=== PATIENT | female | born 1950 | race Caucasian/White ===

== ENCOUNTER → 2017-04-06 07:34 | Outpatient (CLI) | payer MEDICARE ==
[~2017-04-06 07:34] MED LIST: BAYER CHEWABLE81 MG PO; COZAAR100 MG PO; COZAAR25 MG PO; DULERA 100 MCG8.8 GM INH; HYZAAR 100-12.51 TAB PO; LAMISIL250 MG PO; LIPITOR20 MG PO; PROZAC10 MG; PROZAC20 MG PO; TENORMIN25 MG; TENORMIN50 MG PO; ULTRAM50 MG PO; ZEGERID 20 MG C1 CAP PO; ZEGERID OTC 201 EACH PO; ZOCOR20 MG PO
[2017-04-07 09:17] LABS: IMMUNOGLOBULIN E 15 IU/mL (0-100)
== END | disposition home or self-care (01) ==
LOC: D.RT 07:34
PROVIDERS: Internal Medicine Pulmonary Disease
DX: J44.9 Chronic obstructive pulmonary disease, unspecified (principal)

== ENCOUNTER 2017-04-11 22:18 | Inpatient (IN) | payer MEDICARE ==
[~2017-04-11] VITALS: Ht 157.5 cm; Wt 83.2 kg
[2017-04-11 22:59] LABS: BASOPHILS 0.3 % (0-2); EOSINOPHILS 3.8 % (0-7); HEMATOCRIT 38.6 % (36.0-48.0); HEMOGLOBIN 12.1 g/dL (12-16); IMMATURE GRANULOCYTES 1.7 % (0-5); MCHC 31.3 g/dL (31.0-37.0); MCV 92.6 fL (80.0-100.0); MEAN PLATELET VOLUME 10.4 fL (7.4-10.4); MONOCYTES 10.7 % (2-11); NEUTROPHILS 79.5 % (40-80); PLATELET COUNT 212 10x3/uL (130-400); RBC 4.17 10x6/uL (4.00-5.40); RDW 13.3 % (11.5-14.5); WBC 15.6 10x3/uL (4.8-10.8)
[2017-04-11 23:11] LABS: ALKALINE PHOSPHATASE 162 U/L (46-116); ALT (SGPT) 53 U/L (10-68); BILIRUBIN - TOTAL 0.26 mg/dL (0.2-1.3); CALC OSMOLALITY 294 mosm/kg (275-300); CALCIUM 7.1 mg/dL (8.5-10.1); CARBON DIOXIDE 24.5 mmol/L (21.0-32.0); CHLORIDE - SERUM 111 mmol/L (98-107); CREATININE - SERUM 1.5 mg/dL (0.6-1.3); GLUCOSE 77 mg/dL (74-106); POTASSIUM - SERUM 4.5 mmol/L (3.5-5.1); PROTEIN - SERUM 6.3 g/dL (6.4-8.2); SODIUM 145 mmol/L (136-145); UREA NITROGEN 31 mg/dL (7-18); eGFR NON AFRICAN AMERICAN 37 mL/min (90-120)
[2017-04-11 23:32] LABS: CREATINE KINASE 383 UL (21-215); PRO BNP 169 pg/mL (0-125); TROPONIN-I 0.024 ng/mL (0.000-0.060)
[2017-04-11 23:33] LABS: CKMB 3.6 U/L (0.0-3.6)
[2017-04-12] VITALS (24 sets, daily range): BP systolic 101–181; BP diastolic 60–101; Ht 157.5 cm; Wt 83.2 kg
--- NOTE | 2017-04-12 01:58 | NUR ---
RECIEVED PT FROM ER VIA MEDICAL STAFF. ADMISSION ASSESSMENT COMPLETE PER FLOWSHEET. DIMINISHED BREATH SOUNDS BILAT WITH EXPIRATORY WHEEZES HEARD. 7.0 ETT, 24 CM, LEFT LIP LINE. NGT RESTING IN L NARE DRAINING GREEN, STOMACH CONTENTS, INT SUCTION. S1S2 AUDIBLE, HR 80 NORMAL SINUS RHYTHM VIA TELEMETRY. BP 117/98, NIBP. BS ACTIVE X4. WATERY BROWN BOWEL MOVEMENT. PARTIAL LINEN CHANGE COMPLETE. FOELY CATH INTACT DRAINING YELLOW URINE. BILAT BRUISING NOTED ON L & R ARMS. SMALL INCISION ON R CHEST DUE TO CENTRAL LINE ATTEMPT, BRUISING NOTED. ABD IS DISTENDED AND SOFT. SCDS APPLIED TO LOWER LEGS. RADIAL AND PEDAL PULSES PALP. NO SIGNS OF DISTRESS AT THIS TIME. WILL CONT TO MONITOR.
--- NOTE | 2017-04-12 02:30 | NUR ---
UPON SUCTIONING PT, A CHUNK OF FOOD BECAME LODGED IN THE ETT. ELDER ABDI RN CALLED DR. TERRELL. NEW ORDERS RECIEVED. DR. MOULTON INSERTED 8.0 MM ETT. STAT XRAY VIA DR. MOULTON VERBAL ORDER. WILL CONT WITH POC.
--- NOTE | 2017-04-12 03:27 | NUR ---
FAMILY AT BEDSIDE. HX COMPLETE. PT STATEST THAT HE HAS MED LIST IN HIS CAR. WILL GET IT TO [facility].
[2017-04-12] MEDS ORDERED: SINGULAIR10 MG PO (04:33)
[2017-04-12] MEDS ORDERED: MOBIC7.5 MG PO (04:34)
[2017-04-12] MEDS ORDERED: INDERAL 40 MG T40 MG PO (04:36)
[2017-04-12] MEDS ORDERED: SYMBICORT 16010.2 GM INH (04:39)
--- NOTE | 2017-04-12 05:16 | NUR ---
PARTIAL LINEN CHANGE. WATERY, BROWN DIARRHEA. BP TRENDING UP AT THIS TIME. REPOSITIONED CUFF AND RECHECKED. ORAL CARE PROVIDED. REPOSITIONED FOR COMFORT. WILL CONT TO MONITOR.
[2017-04-12 06:56] LABS: BASOPHILS 0.1 % (0-2); EOSINOPHILS 0.1 % (0-7); HEMATOCRIT 38.1 % (36.0-48.0); HEMOGLOBIN 11.8 g/dL (12-16); IMMATURE GRANULOCYTES 0.5 % (0-5); LYMPHOCYTES 2.4 % (15-50); MCH 28.6 pg (26.0-34.0); MCV 92.3 fL (80.0-100.0); MEAN PLATELET VOLUME 11.3 fL (7.4-10.4); NEUTROPHILS 90.9 % (40-80); PLATELET COUNT 230 10x3/uL (130-400); RBC 4.13 10x6/uL (4.00-5.40); RDW 13.5 % (11.5-14.5); WBC 17.4 10x3/uL (4.8-10.8)
[2017-04-12 07:06] LABS: ALBUMIN 2.9 g/dL (3.4-5.0); ANION GAP 17.5 mmol/L (8-16); BILIRUBIN - TOTAL 0.41 mg/dL (0.2-1.3); CARBON DIOXIDE 19.4 mmol/L (21.0-32.0); CREATININE - SERUM 1.3 mg/dL (0.6-1.3); POTASSIUM - SERUM 4.9 mmol/L (3.5-5.1); PROTEIN - SERUM 6.1 g/dL (6.4-8.2)
[2017-04-12 07:07] LABS: CALCIUM 6.8 mg/dL (8.5-10.1)
--- NOTE | 2017-04-12 07:55 | NUR ---
PATIENT HAS AN INVOLUNTARY MOVEMENT OF EYELIDS WITH EACH BREATH. NO OTHER INVOLUMTARY MOVEMENTS NOTED AT THIS TIME. PATIENT IS SEDATED. PERRL 4/4 BRISK.
--- NOTE | 2017-04-12 10:52 | NUR ---
DR. ACEVEDO HERE AND SPOKE WITH PATIENT FAMILY ABOUT BRONCOSCOPY, CONSENT SIGNED FOR PROCEDURE.
--- NOTE | 2017-04-12 11:19 | NUR ---
RESPIRATORY THERAPY HERE IN ROOM SETTING UP FOR BRONC AT THIS TIME.
--- NOTE | 2017-04-12 12:33 | NUR ---
FAMILY AT BEDSIDE. NO CHANGES IN PATIENT CONDITION. V/S WITHIN NORMAL LIMITS. BED IN LOW POSITION.
--- NOTE | 2017-04-12 13:09 | NUR ---
BRONCHOSCOPY COMPLETED.
--- NOTE | 2017-04-12 19:15 | NUR ---
SHIFT ASSESSMENT COMPLETE. PT IS UNABLE TO RESPOND TO ANY COMMANDS. NO MOVEMENT NOTED. DECREASED DIPRIVAN FROM 40 MCG/KG/MIN TO 35 MCG/KG/MIN. PERRLA, 4 MM, BRISK REACTION TO LIGHT. NGT RESTING IN L NARE DRAINING GREEN BILE LIKE FLUID. ETT SIZE 8, 22 CM LEFT LIP LINE. O2 SAT 98%, VENT SETTINGS: A/C, TIDAL VOLUME 500, PEEP 5.0, FIO2 40 %. DIMINISHED LUNG SOUNDS WITH EXPIRATORY WHEEZES HEARD BILAT. S1S2 AUDIBLE, HR 99, NORMAL SINUS RHYTHM. ABD IS DISTENDED AND FLAT. HUITRON CATH DRAINING ANUPAM URINE. L WRIST PIV INFUSING DIPRIVAN, R FOREARM PIV INFUSING D5NS @ 125 ML/HR. SCDS REMOVED AND SKIN ASSESSED, WNL. BRUISING NOTED ON R CHEST AND LEFT/RIGHT ARMS. FSBS 135, NO INSULIN ADMINISTERED. SMALL WATERY BROWN BM NOTED. PARTIAL BED BATH AND LINEN CHANGE. ORAL CARE PROVIDED. REPOSITONED FOR COMFORT. WILL CONT WITH POC.
--- NOTE | 2017-04-12 21:15 | NUR ---
PT'S FAMILY AT BEDSIDE. GAVE HER SPOUSE HER BAG OF MEDICATIONS TO TAKE HOME WITH HIM. UPDATED FAMILY ON PT CONDITION. NO SIGNS OF DISTRESS NOTED. REPOSITIONED FOR COMFORT. ORAL CARE PROVIDED. WILL CONT WITH POC.
--- NOTE | 2017-04-12 22:04 | NUR ---
STARTED PULMOCARE TF PER ORDER. RATE OF 10 ML/HR AT THIS TIME. WILL CLARIFY ORDER TOMORROW WITH ONCOMING NURSE.
--- NOTE | 2017-04-12 22:48 | NUR ---
DECREASED DIPRIVAN. 30 MCG/KG/MIN INFUSING AT THIS TIME. WILL CONT TO MONITOR.
--- NOTE | 2017-04-12 23:30 | NUR ---
REASSESSMENT COMPLETE. DECREASED DIPRIVAN TO 25 MCG/KG/MIN. SHE IS SHOWING SOME SIGNS OF FACIAL GRIMICING WHEN I WAS PERFORMING ORAL CARE. PERRLA, 4 MM, BRISK REACTION TO LIGHT. S1S2 AUDIBLE, HR 108 SINUS TACH. DIMINISHED BREATH SOUNDS WITH EXPIRATORY WHEEZES HEARD BILAT. O2 SAT 98%. BP 154/82, SLIGHT INCREASE IN TEMP TO 99.3 AXILLARY. ABD DISTENDED AND SOFT. BS ACTIVE X4. RESTRAINTS REMOVED AND SKIN ASSESSED, WNL. HUITRON CATH INTACT DRAINING ANUPAM URINE. REPOSITONED FOR COMFORT. WILL CONT WITH POC.
[2017-04-13] VITALS (25 sets, daily range): BP systolic 138–175; BP diastolic 77–114
--- NOTE | 2017-04-13 01:30 | NUR ---
REPOSITIONED FOR COMFORT. DECREASED DIPRIVAN TO 20 MCG/KG/MIN. ORAL CARE PROVIDED. PT STARTED TO FLEX HER LEGS WHEN WE WERE CHANGING HER PAD UNDERNEATH HER. SMALL LIGHT BROWN BM NOTED. WILL CONT WITH POC.
--- NOTE | 2017-04-13 03:00 | NUR ---
REASSESSMENT COMPLETE, NO CHANGES NOTED, PT REPOSITIONED FOR COMFORT, ORAL CARE PROVIDED, WILL CON'T TO MONITOR
[2017-04-13 04:37] LABS: BASOPHILS 0.1 % (0-2); EOSINOPHILS 0.4 % (0-7); HEMATOCRIT 36.4 % (36.0-48.0); HEMOGLOBIN 11.8 g/dL (12-16); IMMATURE GRANULOCYTES 0.2 % (0-5); LYMPHOCYTES 7.1 % (15-50); MCH 29.3 pg (26.0-34.0); MCHC 32.4 g/dL (31.0-37.0); MCV 90.3 fL (80.0-100.0); MEAN PLATELET VOLUME 11.2 fL (7.4-10.4); MONOCYTES 12.3 % (2-11); NEUTROPHILS 79.9 % (40-80); PLATELET COUNT 247 10x3/uL (130-400); RBC 4.03 10x6/uL (4.00-5.40); RDW 13.5 % (11.5-14.5); WBC 16.6 10x3/uL (4.8-10.8)
[2017-04-13 05:02] LABS: ALBUMIN 2.6 g/dL (3.4-5.0); ANION GAP 16.5 mmol/L (8-16); BILIRUBIN - TOTAL 0.4 mg/dL (0.2-1.3); CALCIUM 7.5 mg/dL (8.5-10.1); CARBON DIOXIDE 20.6 mmol/L (21.0-32.0); CREATININE - SERUM 1.4 mg/dL (0.6-1.3); PROTEIN - SERUM 5.9 g/dL (6.4-8.2)
[2017-04-13 05:03] LABS: POTASSIUM - SERUM 3.1 mmol/L (3.5-5.1)
--- NOTE | 2017-04-13 06:09 | NUR ---
FAMILY AT BEDSIDE, UPDATE GIVEN
--- NOTE | 2017-04-13 07:00 | NUR ---
PT SEDATED ON VENT AND APPEARS TO BE ADEQUATELY SEDATED AT THIS TIME. RESPONDS TO DEEP STIMULI BUT NOT FOLLOWING COMMANDS. PT LOCALIZES PAIN AND GAGS WITH SUCITON, ORAL CARE PERFORMED AND ETT SUCTION. COMPLETE SHIFT ASSESSMENT DOCUMENTED PER FLOWSHEET. NO EVIDENCE OF PAIN AT THIS TIME. WILL MONITOR CLOSELY FOR CHANGES
--- NOTE | 2017-04-13 09:00 | NUR ---
FAMILY AT BEDSIDE. PT REPOSITONED IN BED FOR COMFORT. WILL CONTINUE TO MONITOR F0R ACUTE CHANGES
--- NOTE | 2017-04-13 10:30 | NUR ---
SPOKE WITH DIETARY AND INCREASED TUBE FEEDINGS TO 20CC/HR PER ORDER. WILL MONITOR FOR EXCESS RESIDUAL. NO FURTHER CHANGES AT THIS TIME.
--- NOTE | 2017-04-13 11:07 | NUR ---
PT REPOSITIONED IN BED AND CLEANED AFTER BM. NEW PAD UNDER PT AND HUITRON CARE COMPLETE. ETT SUCTION AND ORAL CARE PERFORMED. MUCOUS PLUG NOTED WITH BLOODY SECRETIONS. MILD BLEEDING NOTED IN MOUTH. TUBE LAVAGED. WILL CONITNUE TO MONITOR FOR SIGNS OF DISTRESS.
--- NOTE | 2017-04-13 13:03 | NUR ---
CALLED DR FREDERICK'S OFFICE AND NOTIFIED OF CONSULT. WILL REPEAT HEAD CT TODAY PER ORDER.
--- NOTE | 2017-04-13 14:29 | NUR ---
Unable to assess dc plans/needs at this time due to patient sedated, on vent. No family present at this time.
--- NOTE | 2017-04-13 15:00 | NUR ---
PT TO CT PER ORDER ON VENT WITH RN AND RT AT BEDSIDE. SAFE TRANSFER BACK TO ROOM AFTER CT. PT BACK ON MONITOR. NO CHANGES IN VENT SETTINGS. PT APPEARS STABLE AT THIS TIME.
--- NOTE | 2017-04-13 17:05 | NUR ---
ORAL CARE PERFORMED AND RT AT BEDSIDE. PT REPOSITIONED IN BED. PT REMAINS IN SINUS TACHYCARDIA AT THIS TIME. WILL CONITNUE TO MONITOR
--- NOTE | 2017-04-13 19:30 | NUR ---
ASSESSMENT COMPLETE. SINUS TACHYCARDIA SHOWING ON MONITOR. S1S2. RADIAL AND PEDAL PULSES PALPATED. SEDATED ON VENT. DOES NOT RESPOND TO PAINFUL STIMULI ON UPPER OR LOWER EXTREMITIES. DECREASED SEDATION. COUGHS WITH SUCTIONING. NGT IN PLACE; TUBE FEEDING. PIV TO RIGHT FOREARM; INFILTRATED; DC'D WITH CATH INTACT. SKIN TEARS AND BRUISING NOTED TO BOTH R/L ARMS. PIV STARTED TO LEFT BREAST; X3 ATTEMPT. BRUISING NOTED TO RIGHT SHOULDER/CHEST AREA. PIV TO LEFT WRIST; PATENT. SKIN PALE.
--- NOTE | 2017-04-13 21:30 | NUR ---
FAMILY AT BEDSIDE. UPDATE GIVEN. QUESTIONS ANSWERED.
--- NOTE | 2017-04-13 23:20 | NUR ---
REASSESSMENT COMPLETE. NO ACUTE CHANGES FROM PREVIOUS ASSESSMENT. VSS. NO DISTRESS NOTED. WILL CONTINUE TO MONITOR.
[2017-04-14] VITALS (23 sets, daily range): BP systolic 120–176; BP diastolic 79–103
--- NOTE | 2017-04-14 02:45 | NUR ---
COMPLETE BED BATH GIVEN. HUITRON CARE COMPLETE. COMPLETE LINEN CHANGE. ADL FLOW SHEET FOR DETAILS.
--- NOTE | 2017-04-14 02:55 | NUR ---
REASSESSMENT COMPLETE. NO ACUTE CHANGES FROM PREVIOUS ASSESSMENT. WILL CONTINUE TO MONTIOR.
[2017-04-14 05:12] LABS: ALBUMIN 2.4 g/dL (3.4-5.0); BILIRUBIN - TOTAL 0.38 mg/dL (0.2-1.3); CALCIUM 7.4 mg/dL (8.5-10.1); CARBON DIOXIDE 21.4 mmol/L (21.0-32.0); CREATININE - SERUM 1.3 mg/dL (0.6-1.3); PROTEIN - SERUM 5.7 g/dL (6.4-8.2)
--- NOTE | 2017-04-14 06:06 | NUR ---
FAMILY AT BEDSIDE. UPDATE GIVEN. QUESTIONS ANSWERED.
[2017-04-14 06:12] LABS: ANION GAP 12.9 mmol/L (8-16); POTASSIUM - SERUM 3.3 mmol/L (3.5-5.1)
--- NOTE | 2017-04-14 07:00 | NUR ---
PT RESTING ON HER BACK. SEDATED WITH PROPOFOL AT 25 MCG/KG/MIN. NG TUBE IN LEFT NARE WITH PULMOCARE AT 20ML/HR WITH 10ML FLUSH Q 2HR. LEFT BREAST PERIPHERAL IV INFUSING D5NS AT 100ML/HR. L-WRIST PERIPHERAL IV INFUSING PROPOFOL. ON TELEMETRY SYNUS TACH 124BEATS/MIN. EXPIRATORY WHEEZING NOTED ON RUL,CHERIE,RML,LML. DIMINISHED LLL,RLL. BS ACTIVE X 4. ABDOMEN IS SOFT. HUITRON SECURED TO RIGHT THIGH. URINE DARK AND CONCENTRATED. BED LOW POSITIOBN, CALL LIGHT WITHIN REACH, SIDE RAILS UP X 2.
--- NOTE | 2017-04-14 07:50 | NUR ---
PROPOPOL TURNED OFF PER DR. BUTLER'S REQUEST. AFTER ASSESSMENT PT PROPOFOL SET BACK TO 25 MCG/KG/MIN. PT WAS ABLE TO OPEN EYES WHEN OFF SEDATION BUT DID NOT FOLLOW COMMANDS.
--- NOTE | 2017-04-14 08:31 | NUR ---
PT TURNED AND REPOSTIONED ONTO LEFT SIDE. PILLOW PLACE UNDER RIGHT SIDE. WRIST RESTRAINTS IN PLACE. PT COUGHED DURING MOVEMENT. SUCTIONED USED. TURNED PROPOFOL DOWN TO 20 MCG/KG/MIN.
--- NOTE | 2017-04-14 09:32 | NUR ---
PROPOFOL TURNED OFF FOR EEG AT THIS TIME.
--- NOTE | 2017-04-14 09:32 | NUR ---
PROPOFOL TURNED OFF AT THIS TIME FOR EKG.
--- NOTE | 2017-04-14 10:17 | NUR ---
NUTRITION F/U CHART REVIEWED, PT REMAINS SEDATED ON VENT. DIPRIVAN @ 20 CC/HR. TOLERATING PULMOCARE @ 20 CC/HR. WILL INCREASE TUBE FEED RATE TO 25 CC/HR. CONTINUE TO MONITOR DIPRIVAN RATE AND ADJUST TUBE FEEDS ACCORDINGLY. RD FOLLOWING
--- NOTE | 2017-04-14 10:23 | NUR ---
EEG FINISHED. PROPOFOL TURNED BACK ON 20MCG/KG/MIN. HR AT 140S AT THIS TIME. BP ELEVATED. INCREASED PROPOFOL TO 25MCG/KG/MIN TO HELP CALM HER DOWN.
--- NOTE | 2017-04-14 10:31 | NUR ---
PROPOFOL INCREASED TO 30. HR 130, BP STILL ELEVATED AT 183/112.
--- NOTE | 2017-04-14 10:45 | NUR ---
ENALAPRIL GIVEN FOR BP OF 183/112. BP NOW 172/91. WILL CONTINUE TO MONITOR BP.
--- NOTE | 2017-04-14 11:03 | NUR ---
INCREASED FEEDING RATE TO 25ML/HR PER ORDERS.
--- NOTE | 2017-04-14 11:13 | NUR ---
* Is the patient Alert and Oriented? Yes 0 * How many steps to enter\exit or inside your home? 4 0 * PCP Dr. Covington 0 * Pharmacy [facility] in [place] 0 * Preadmission Environment Home with Family 0 * ADLs Independent 0 * Equipment Nebulizer 0 * List name and contact numbers for known caregivers / representatives who currently or will assist patient after discharge: Spouse - Loco [phone] Daughter - Myriam Medeiros [phone] Daughter - Ann Marie Laboy [phone] 0 * Additional services required to return to the preadmission environment? Yes 0 * Can the patient safely return to the preadmission environment? Yes 0 * Has this patient been hospitalized within the prior 30 days at any hospital? No Patient Name: MIKALA LABOY Admission Status: ER Accout number: [id number] Admission Date: 04-12-2017 : 1950 Admission Diagnosis:CARDIAC ARREST, CAUSE UNSPECIFIED Attending: RENETTA DELEON Current LOS: 2 Planned Disposition: Home with Home Health Primary Insurance: [employer] ADV Discharge Planning Comments: CM met with spouse & two daughters to assess dc plans/needs. Prior to admission, patient was living with her . They report she was independent with all ADL's & IADL's. She does not use any assistive devices for mobility, but does have a home nebulizer. She has not had home health services in the past but they are interested in services at discharge. Reviewed list of local agencies. [facility] signed for [facility]. CM will follow & assist as needed. Manager Financial Systems: Ann Marie Tanner
--- NOTE | 2017-04-14 11:32 | NUR ---
POTASSIUM WAS LOW THIS MORNING 3.3. GAVE 40MEQ OF KCL PO VIA NG TUBE PER ELECTROLYTE PROTOCOL.
--- NOTE | 2017-04-14 12:18 | NUR ---
TYLENOL GIVEN VIA NG TUBE FOR TEMPERATURE OF 101.9. SUCTIONED USED. BS 129, NO INSULIN GIVEN PER SLIDING SCALE.
--- NOTE | 2017-04-14 12:20 | NUR ---
CURRENT BP 161/79. HR 132 TACHYCARDIC.
--- NOTE | 2017-04-14 13:48 | NUR ---
BP DOWN TO 151/91. HR IN THE 130S.
--- NOTE | 2017-04-14 13:49 | NUR ---
SPOKE WITH DR. SANTANA ABOUT BP AND HEART RATE. WILL CONTINUE TO MONITOR BP.
--- NOTE | 2017-04-14 13:55 | NUR ---
REASSESSED TEMP 101.7. TURNED TEMP OF ROOM DOWN. TOP SHEET REMOVED TO DECREASE TEMP.
--- NOTE | 2017-04-14 14:05 | NUR ---
SPOKE WITH DR. TREVINO ABOUT TEMP OF 101.7. INSTRUCTED TO HAVE BLOOD CULTURES DRAWN AND TO CONTINUE TO GIVE TYLENOL.
[2017-04-14 14:19] LABS: FUNGUS STAIN Final report (())
--- NOTE | 2017-04-14 15:30 | NUR ---
PT RUNNING A TEMP OF 102.5. ICE PACKS PLACED UNDER ARMS AND ON GROIN AREA. LEFT COVER SHEET OFF. PT RESTING ON BACK.
--- NOTE | 2017-04-14 16:13 | NUR ---
POTASSIUM RECHECKED 3.9. NO ACTION NEEDED AT THIS TIME.
--- NOTE | 2017-04-14 17:20 | NUR ---
BP 165/89 HR 137. VASOTEC GIVEN PER ORDERS.
--- NOTE | 2017-04-14 17:30 | NUR ---
TEMP REASSESSMENT 101.4. ICE PACKS REMOVED FOR A FEW MINUTES AND PLACED BACK ON.
--- NOTE | 2017-04-14 18:01 | NUR ---
650MG TYLENOL GIVEN FOR FEVER OF 101.4. FAMILY IN ROOM WITH PT. NO OTHER NEEDS AT THIS TIME.
[2017-04-14 19:11] LABS: ACID FAST SMEAR Negative (()); AFB SPECIMEN PROCESSING Concentration (())
--- NOTE | 2017-04-14 19:20 | NUR ---
ASSESSMENT COMPLETE. SEDATED ON VENT. PIV TO LEFT WRIST; LEFT BREAST; PATENT. SINUS TACHYCARDIA SHOWING ON MONITOR. CONCERNS ABOUT ELEVATED BP. FEBRILE. NO COVERS ON PT; ICE PACKS IN PLACE. PLACED FAN INTO ROOM IN ATTEMPTS TO LOWER TEMPERATURE. RADIAL AND PEDAL PULSES PALPATED. SWELLING NOTED TO HANDS AND FEET. BRUSING NOTED TO BILATERAL ARMS AND RIGHT CHEST. RASH/REDNESS NOTED TO LEFT FOREARM. SCD IN PLACE. HUITRON IN PLACE; DARK; SEDIMENT PRESENT.
--- NOTE | 2017-04-14 19:55 | NUR ---
SPOKE WITH TIFFANY, REGIONAL OPERATIONS MANAGER FOR DR. DELEON. ORDERS RECEIVED. CONCERNS FOR BP.
--- NOTE | 2017-04-14 21:30 | NUR ---
FAMILY AT BEDSIDE. UPDATE GIVEN. QUESTIONS ANSWERED.
--- NOTE | 2017-04-14 23:10 | NUR ---
REASSESSMENT COMPLETE. NO ACUTE CHANGES FROM PREVIOUS ASSESSMENT. MONITORING BP/HR CLOSELY.
[2017-04-15] VITALS (24 sets, daily range): BP systolic 113–177; BP diastolic 63–115
--- NOTE | 2017-04-15 03:30 | NUR ---
REASSESSMENT COMPLETE. NO ACUTE CHANGES FROM PREVIOUS ASSESSMENT.
[2017-04-15 05:03] LABS: BASOPHILS 0.1 % (0-2); EOSINOPHILS 0 % (0-7); HEMATOCRIT 34.7 % (36.0-48.0); HEMOGLOBIN 10.9 g/dL (12-16); LYMPHOCYTES 4.7 % (15-50); MCH 28.8 pg (26.0-34.0); MCHC 31.4 g/dL (31.0-37.0); MCV 91.6 fL (80.0-100.0); MEAN PLATELET VOLUME 10.9 fL (7.4-10.4); MONOCYTES 11.7 % (2-11); NEUTROPHILS 82.5 % (40-80); PLATELET COUNT 221 10x3/uL (130-400); RBC 3.79 10x6/uL (4.00-5.40); WBC 19.7 10x3/uL (4.8-10.8)
[2017-04-15 05:31] LABS: ALBUMIN 2.2 g/dL (3.4-5.0); ANION GAP 17.3 mmol/L (8-16); BILIRUBIN - TOTAL 0.3 mg/dL (0.2-1.3); CARBON DIOXIDE 19.5 mmol/L (21.0-32.0); CREATININE - SERUM 1.2 mg/dL (0.6-1.3); POTASSIUM - SERUM 3.8 mmol/L (3.5-5.1)
[2017-04-15 05:32] LABS: CALCIUM 6.9 mg/dL (8.5-10.1)
--- NOTE | 2017-04-15 05:44 | NUR ---
PT HAD SMALL SOFT BM. PT CLEANED; LINENS CHANGED. HUITRON CARE COMPLETE.
--- NOTE | 2017-04-15 07:25 | NUR ---
SHIFT ASSESSMENT COMPLETE.
--- NOTE | 2017-04-15 09:42 | NUR ---
RESTARTED IV IN R FA WITH 18G CATH, GOOD BLOOD RETURN NOTED, AND FLUSHED EASILY. DIPRIVAN MOVED OVER TO R FA IV DUE TO L WRIST IV LEAKING AT SITE. L WRIST IV DC'D WITH PRESSURE DRESSING APPLIED.
--- NOTE | 2017-04-15 10:00 | NUR ---
NUTRITION F/U CHART REVIEWED, PT REMAINS ON VENT. SEDATED. DIPRIVAN @ 23.8 CC/HR. PULMOCARE CURRENTLY OFF. PREVIOUS GOAL RATE 25 CC/HR. RECOMMEND RESUME TUBE FEEDS WHEN MEDICALLY FEASIBLE. RD FOLLOWING
--- NOTE | 2017-04-15 12:00 | NUR ---
PATIENT IS STILL FLACCID STIFF FROM EDEMA PATIENT WILL OPEN EYES AT TIMES.
--- NOTE | 2017-04-15 17:05 | NUR ---
PATIENT HAD LIQUID BM DARK GREEN IN COLOR. LINES CHANGED, HUITRON CARE COMPLETE. CALL LIGHT WITHIN REACH, BED IN LOW POSITION.
--- NOTE | 2017-04-15 19:45 | NUR ---
ASSESSMENT COMPLETED PER FLOW SHEETS. PT SEDATED ON VENT, UNRESPONSIVE TO TACTILE STIMULATION OR VOICES. ST ON CM, LUNG SOUNDS DIMINISHED TO ALL MERAZ. NGT TO EFT NARE IN PLACE AND TAPED TO NOSTRIL. TF CONT WITH PULMOCARE AT 25CC. PER PUMP. LEFT CHEST AND RT FA PIV INTACT INFUSING FLUIDS PER ORDER. HUITRON CATH TO GRAVITY WITH ANUPAM, SEDIMENTED DRAINAGE TO BAG. PPP. WILL CONT TO MONITOR.
--- NOTE | 2017-04-15 21:00 | NUR ---
FAMILY AT BEDSIDE. UPDATED
--- NOTE | 2017-04-15 23:00 | NUR ---
REASSESSMENT COMPLETED. SEE FLOW SHEETS FOR ALL FINDINGS. NO ACUTE SIGNS OF DISTRESS NOTED AT THIS TIME. VSS. CPOC
[2017-04-16] VITALS (26 sets, daily range): BP systolic 92–182; BP diastolic 60–101
--- NOTE | 2017-04-16 01:00 | NUR ---
PT SEDATED ON VENT WITHOUT DISTRESS. VSS. MOUTH CARE PROVIDED PER VAP. REPOSITONED FOR COMFORT. PILLOWS IN USE FOR SUPPORT. HOB UP. SIDE RAILS UP. CPOC.
--- NOTE | 2017-04-16 03:00 | NUR ---
REASSESSMENT COMPLETED. SEE FLOW SHEETS FOR ALL FINDINGS. PT ON VENT SEDATED, BECOMES RESTLESS WITH SUCTIONING AND TURNING. CONT SEDATION PER ORDER FOR PT'S COMFORT. ST ON CM. MOUTH CARE PROVIDED. CONT TO MONITOR.
[2017-04-16 04:07] LABS: BASOPHILS 0.1 % (0-2); EOSINOPHILS 0.1 % (0-7); HEMATOCRIT 31.1 % (36.0-48.0); HEMOGLOBIN 9.7 g/dL (12-16); IMMATURE GRANULOCYTES 1.3 % (0-5); LYMPHOCYTES 3.4 % (15-50); MCH 28.5 pg (26.0-34.0); MCHC 31.2 g/dL (31.0-37.0); MCV 91.5 fL (80.0-100.0); MEAN PLATELET VOLUME 10.4 fL (7.4-10.4); MONOCYTES 9.4 % (2-11); NEUTROPHILS 85.7 % (40-80); RDW 13.9 % (11.5-14.5)
[2017-04-16 04:18] LABS: ALBUMIN 1.9 g/dL (3.4-5.0); ANION GAP 14.8 mmol/L (8-16); BILIRUBIN - TOTAL 0.22 mg/dL (0.2-1.3); CALCIUM 7.3 mg/dL (8.5-10.1); CARBON DIOXIDE 19.6 mmol/L (21.0-32.0); CREATININE - SERUM 1.1 mg/dL (0.6-1.3); POTASSIUM - SERUM 3.4 mmol/L (3.5-5.1); PROTEIN - SERUM 5.1 g/dL (6.4-8.2)
[2017-04-16 04:20] LABS: PLATELET COUNT 170 10x3/uL (130-400); WBC 14.6 10x3/uL (4.8-10.8)
--- NOTE | 2017-04-16 05:00 | NUR ---
PT INCONTINENT OF LARGE STOOL. COMPLETE BEDBATH GIVEN SKIN CARE PROVIDED. LINEN AND GOWN CHANGED. MOUTH CARE PER VAP PROVIDED. PT GETS RESTLESS AND BEATHING OVER VENT WITH STIMULATION. CONT SEDATION PER ORDER FOR PT'S CONFORT ON VENT. REPOSITIONED FOR COMFORT. PILLOWS IN USE FOR SUPPORT. HOB UP. SIDE RAILS UP X2. CALL LIGHT IN REACH. CPOC.
--- NOTE | 2017-04-16 07:15 | NUR ---
ASSESSMENT COMPLETE. NO DISTRESS NOTED.
--- NOTE | 2017-04-16 08:00 | NUR ---
TURNED AND REPOSITIONED ONTO R SIDE. NO DISTRESS NOTED.
--- NOTE | 2017-04-16 10:00 | NUR ---
TURNED AND REPOSITIONED. PROPOFOL DECREASEDTO 30MCG/KG/MIN.
--- NOTE | 2017-04-16 12:00 | NUR ---
TURNED AND REPOSTIONED ON TO BACK. NO ACUTE CHANGES IN CONDITION. PROPRFOL DECREASED TO 20MCG/KG/MIN.
--- NOTE | 2017-04-16 14:00 | NUR ---
REPOSITIONED ONTO R SIDE. NO DISTRESS NOTED. DIPRIVAN CONTS AT 20MCG/KE/MIN.
--- NOTE | 2017-04-16 16:00 | NUR ---
INCONTINENT MOD AMT LIQUID BROWN STOOL. INCONTINENCE CARE DONE AND REPOSITIONED ONTO R SIDE. DIPRIVAN INCREASED TO 30MCG/KG/MIN.
--- NOTE | 2017-04-16 18:00 | NUR ---
REPOSITIONED ONTO BACK. NO ACUTE CHANGES IN CONDITION.
--- NOTE | 2017-04-16 19:45 | NUR ---
PT INTUBATED AND SEDATED, UNRESPOSIVE TO STIMULI. EXTREMITIES FLACCID. PT REPOSITONED WITH BONY PROMINENCES BRIDGED. S1S2 HEARD, PERIPHERAL PULSES WEAK. BOWEL SOUNDS HYPOACTIVE X4. HUITRON CATH INTACT WITH YELLOW URINE TO BEDSIDE DRAINAGE. ORAL CARE ADM PER VAP PROTOCOL. ROOM VISIBLE FROM NURSES STATION. CPOC.
--- NOTE | 2017-04-16 21:30 | NUR ---
FAMILY AT BEDSIDE, UPDATE PROVIDED.
--- NOTE | 2017-04-16 23:30 | NUR ---
REASSESSMENT COMPELTE, SEE FLOWSHEET FOR ALL FINDINGS. PT REPOSITIONED WITH BONY PROMINENCES BRIDGED. ORAL CARE ADM PER VAP PROTOCOL. UNRESPONSIVE TO STIMULI. ROOM VISIBLE FROM NURSES STATION. CPOC.
[2017-04-17] VITALS (29 sets, daily range): BP systolic 55–139; BP diastolic 30–77
--- NOTE | 2017-04-17 01:30 | NUR ---
PT REMAINS UNRESPONSIVE TO STIMULI. REPOSITIONED WITH BONY PROMINENCES BRIDGED. PARTIAL LINEN CHANGE COMPLETE. ORAL CARE ADM PER VAP PROTOCOL. ROOM VISIBLE FROM NURSES STATION. CPOC.
--- NOTE | 2017-04-17 02:25 | NUR ---
MAX PAGED REGARDING PT HYPOTENSION AND CURRENT STATUS.
--- NOTE | 2017-04-17 02:33 | NUR ---
REC'D CALLBACK FROM DR. SANTANA. REC'D CALLBACK FROM PT . PT IS NOW A DNR, SECOND WITNESS- GENESIS CRAIG RN.
--- NOTE | 2017-04-17 02:45 | NUR ---
COMPLETE LINEN CHANGE AND BATH GIVEN. ORAL CARE ADM. PT REMAINS HYPOTENSIVE, SBP IN THE 50'S. SIMV 14, SPO2 98. UNRESPOSIVE TO STIMULI AT THIS TIME, EXTREMITIES FLACCID. EXTREMITIES BRIDGED, HOB @ 30 DEGREES. WILL CONTINUE TO MONITOR. ROOM VISIBLE FROM NURSES STATION.
--- NOTE | 2017-04-17 03:00 | NUR ---
FAMILY AT BEDSIDE, ALL QUESTIONS ANSWERED AND UPDATE PROVIDED.
--- NOTE | 2017-04-17 04:42 | NUR ---
FAMILY REFUSING AM LAB DRAW AND ABG AT THIS TIME.
--- NOTE | 2017-04-17 06:30 | EEG ---
PATIENT:MIKALA LABOY DATE OF SERVICE: 04/12/17 MEDICAL RECORD: [id number] DATE OF : 50 LOCATION:D.230 D.ICU ADMISSION DATE: 04/12/17 REFERRING PHYSICIAN: INTERPRETING PHYSICIAN: ELIZA BUTLER MD DATE OF SERVICE: 04/14/2017 Referred by myself as an inpatient, currently in room 2306. ELECTROENCEPHALOGRAM NUMBER: [id number]. DATE OF EXAMINATION: 04/14/2017 at 10:00 a.m. TECHNICAL DATA: This electroencephalographic recording consisted of approximately 20 minutes of data collection utilizing the international 10/20 system of electrode placement and both referential and non-referential montages. Sixteen channels of electrocerebral recording are accompanied by a 17th channel dedicated to the electrocardiographic rhythm and 2 channels of electromyographic recording. Recording is performed entirely in the comatose state utilizing activation by photic stimulation. ELECTROENCEPHALOGRAPHIC DATA: The entirety of the recorded electrocerebral activity is performed in the comatose state. Electromyographic artifact remains remarkably prominent. Rapid eye movements are not seen. Electromyographic artifact obscures much of the recorded electrocerebral activity. This is a very low voltage recording with evidence of an irregular generalized and symmetric delta slowing in the range of 2-3 Hz seen mostly in central regions. No focal slowing is identified. No epileptiform discharges are seen. Photic stimulation induces no change in the recorded electrocerebral activity. INTERPRETATION: Continuous slow, generalized (coma). This electroencephalographic recording is indicative of a severe diffuse encephalopathy. TRANSINT:[id number] Voice Confirmation ID: [id number] DOCUMENT ID: [id number] ELIZA BUTLER MD at 0630 CC: [id number] DICTATION DATE: 04/15/17 0818 HYDRO OPERATOR: 04/15/17 0858 ADM IN [facility] [address] [place] [address]
--- NOTE | 2017-04-17 07:30 | NUR ---
ASSESSMENT COMPLETE. DR. BUTLER HERE. PUPILS FIXED AND DILATED.
--- NOTE | 2017-04-17 08:00 | NUR ---
FAMILY AT BEDSIDE. CONDITION UPDATE GIVEN.
--- NOTE | 2017-04-17 11:00 | NUR ---
NO ACUTE CHANGES IN CONDITION.
--- NOTE | 2017-04-17 12:00 | NUR ---
DR. TREVINO HERE. NO ACUTE CHANGES IN CONDITION,
--- NOTE | 2017-04-17 14:00 | NUR ---
FAMILY @ BEDSIDE. CONDITION UPDATE GIVEN.
--- NOTE | 2017-04-17 16:00 | NUR ---
NO CHANGES IN CONDITION,
--- NOTE | 2017-04-17 17:19 | NUR ---
SPOKE WITH CRISTELA AT [facility]. WOULD LIKE A RETURN CALL WITH ANY CHANGE IN CONDITION. WILL CALL BACK Q SHIFT TO CHECK IN ON PT AND FOLLOW ALONG.
--- NOTE | 2017-04-17 19:00 | NUR ---
PT INTUBATED, SEDATION OFF. DOES NOT RESPOND TO STIMULI. PUPILS 7MM, FIXED. HYPOTENSIVE ON MONITOR, SBP 70'S. HR 70'S, NSR. PERIPHERAL PULSES WEAK. BOWEL SOUNDS HYPOACTIVE. HUITRON CATH INTACT WITH DILUTED URINE TO BEDSIDE DRAINAGE. 2+ PITTING EDEMA NOTED TO ALL EXTREMITIES. FAMILY AT BEDSIDE. PT REPOSITIONED IN BED WITH BONY PROMINENCES BRIDGED. COMFORT MEAUSURES GIVEN. FAMILY DENIES ANY NEEDS AT THIS TIME. CPOC.
--- NOTE | 2017-04-17 21:30 | NUR ---
EXTENDED FAMILY AT BEDSIDE, UPDATE GIVEN AND ALL QUESTIONS ANSWERED. NO ACUTE CHANGES AT THIS TIME. COMFORT MEASURES GIVEN PER FAMILY.
--- NOTE | 2017-04-17 23:00 | NUR ---
REASSESSMENT COMPLETE, NO ACUTE CHANGES AT THIS TIME. REMAINS HYPOTENSIVE AND UNRESPONSIVE TO STIMULI. PARTIAL LINEN CHANGE PROVIDED AT THIS TIME. AT BEDSIDE, DENIES ANY NEEDS AT THIS TIME. ROOM VISIBLE FROM NURSES STATION. WILL CONTINUE TO MONITOR AND PROVIDE COMFORT MEASURES.
[2017-04-18] VITALS (24 sets, daily range): BP systolic 51–71; BP diastolic 31–41
--- NOTE | 2017-04-18 01:00 | NUR ---
NO ACUTE CHANGES AT THIS TIME. AT BEDSIDE. DENIES NEEDS AT THIS TIME.
--- NOTE | 2017-04-18 03:19 | NUR ---
REASSESSMENT COMPLETE, NO ACUTE CHANGES NOTED. SEE FLOWSHEET FOR ALL FINDINGS. SBP 70'S, HR 60'S. ORAL CARE ADM. COMFORT MEASURES, DENIES NEEDS AT THIS TIME.
--- NOTE | 2017-04-18 06:13 | NUR ---
EXTENDED FAMILY AT BEDSIDE, UPDATE GIVEN AND QUESTIONS ANSWERED. NO ACUTE CHANGES NOTED AT THIS TIME. FAMILY DENIES NEEDS AT THIS TIME.
--- NOTE | 2017-04-18 18:00 | NUR ---
COMFORT MEASURES ONLY THIS SHIFT. EMOTIONAL SUPPORT GIVEN TO FAMILY. PLAN TO TERMINALLY EXTUBATE IN AM.
--- NOTE | 2017-04-18 19:00 | NUR ---
ASSESSMENT COMPLETE. S1S2. NSR SHOWING ON MONITOR. RR WHEEZE NOTED BILATERALLY ON INSPIRE AND ; DIMINISHED BILATERALLY THROUGHOUT ALL LOBES. PT INTUBATED; UNRESPONSIVE. PUPILS FIXED. SWELLING NOTED TO ALL EXTREMITIES. SKIN PALE. NGT, HUITRON IN PLACE.
--- NOTE | 2017-04-18 20:10 | NUR ---
PT HAD LARGE LIQUID BM; PT CLEANED, HUITRON CARE COMPLETE. LINENS CHANGED.
--- NOTE | 2017-04-18 22:15 | NUR ---
PT O2 SAT FELL TO 40% WITH GOOD WAVE FORM AND SIGNAL. ORAL CARE AND SUCTIONING PROVIDED WITH NO CHANGE IN PERCENT. FAMILY NOTIFED AT BEDSIDE. O2 SAT AFTER 10 MINUTES RETURNED TO 90%. WILL MONITOR CLOSELY FAMILY AWARE OF CONDITION.
--- NOTE | 2017-04-18 22:50 | NUR ---
O2 SAT FELL TO 60%; RETURNED AFTER A FEW MINUTES. REMAINS AT BEDSIDE.
--- NOTE | 2017-04-18 23:05 | NUR ---
REASSESSMENT COMPLETE. MONITORING OXYGEN SATS CLOSELY. AT BEDSIDE.
--- NOTE | 2017-04-18 23:15 | NUR ---
TEMP DROPPED TO 95.8. CONTINUING COMFORT CARE; AT BEDSIDE.
[2017-04-19] VITALS: BP 51/34
[2017-04-19 01:00] VITALS: BP 49/33
--- NOTE | 2017-04-19 01:00 | NUR ---
COMFORT CARE CONTINUES. AT BEDSIDE.
[2017-04-19 02:00] VITALS: BP 52/34
[2017-04-19 03:00] VITALS: BP 51/33
--- NOTE | 2017-04-19 03:00 | NUR ---
REASSESSMENT COMPLETE. NO ACUTE CHANGES FROM PREVIOUS ASSESSMENT. COMFORT CARE CONTINUES. AT BEDSIDE.
[2017-04-19 04:00] VITALS: BP 48/24
--- NOTE | 2017-04-19 04:00 | NUR ---
PT COMPLETE BED BATH; COMPLETE LINEN CHANGE. HUITRON DC'D, PIV TO RIGHT WRIST DC'D.
--- NOTE | 2017-04-19 04:30 | NUR ---
ADM MORPHINE FOR PRE TERMINAL EXTUBATION; RESPRITORY THERAPY NOTIFIED.
[2017-04-19 05:00] VITALS: BP 41/24
--- NOTE | 2017-04-19 05:05 | NUR ---
TERMINAL EXTUBATION. ETT DC'D PLACED ON 2L NC FOR COMFORT. APNEA NOTED.
--- NOTE | 2017-04-19 05:15 | NUR ---
PT SHOWING ASYTOLE ON MONITOR; NO PULSE PALPATED.
--- NOTE | 2017-04-19 05:25 | NUR ---
DR. TREVINO NOTIFED OF PT .
--- NOTE | 2017-04-19 06:00 | NUR ---
DR. HILARIO AT BEDSIDE TO PRONOUNCE.
--- NOTE | 2017-04-19 06:25 | NUR ---
[facility] NOTIFIED.
--- NOTE | 2017-04-19 10:10 | NUR ---
[facility] IS HERE TO P[employer] PT BODY...
[2017-04-20 09:13] LABS: FUNGUS MYCOLOGY CULTURE Preliminary report (())
--- NOTE | 2017-04-20 14:49 | NUR ---
Per CMS protocol, restraint report logged into data base.
--- NOTE | 2017-04-22 12:22 | CN ---
PATIENT NAME:MIKALA BETTS MEDICAL RECORD: [id number] : 50 LOCATION:[facility].2306 ADMIT DATE: 04/12/17 ACCOUNT: [id number] CONSULTING PHYSICIAN: GISSEL DAVIS MD REFERRING PHYSICIAN: RENETTA DELEON M.D. DATE OF CONSULTATION: 04/12/2017 ADMITTING DIAGNOSIS: Status post cardiopulmonary arrest. HISTORY OF PRESENT ILLNESS: Mrs. Betts was eating a hamburger, choked on it, became unresponsive and cyanotic. Her did CPR for 10 minutes prior to EMS getting there. EMS arrived, she was supposedly asystolic; however, with respiration and ACLS measures, she regained sinus rhythm. Her EKG is sinus rhythm, no ST-T abnormalities. She has had no dysrhythmias. Her troponin is negative. There is a question of anoxic injury. She has no cardiac history. She had no chest pain or chest discomfort. PHYSICAL EXAMINATION: GENERAL APPEARANCE: The patient is intubated and sedated. PSYCHIATRIC: Mental status, alert, normal affect. Orientation, oriented to time, place and person. EYES: Lids and conjunctiva, noninjected. No discharge, no pallor. ENT: Lips, teeth, gums, normal dentition. Oropharynx, no cyanosis, no pallor. NECK: Carotid arteries, bilateral normal upstroke, no bruits, no thrills. JUGULAR VEINS: No jugular venous pressure or distention. CERVICAL LYMPH NODES: Nontender, nonenlarged. THYROID: Not enlarged. Nontender. No nodules. LUNGS: Respiratory effort, unlabored. CHEST: Normal curvature. No thoracic deformity. No chest wall tenderness. Percussion, resonant. Auscultation, clear. No wheezes, no rales, no rhonchi. CARDIOVASCULAR: Precordial exam, nondisplaced. No heaves or pericardial thrills. Rate and rhythm, regular. Heart sounds, normal S1, normal S2. No S3, no gallop, no rub. Systolic murmur, not heard. Diastolic murmur, not heard. EXTREMITIES: No cyanosis, no edema. Peripheral pulses, full and equal in all extremities, except as noted. No bruits appreciated. ABDOMEN: Soft, nondistended. Normal aorta. No bruit. Nontender. No masses. Liver, nontender, no hepatomegaly. Spleen, nontender, no splenomegaly. MUSCULOSKELETAL: No joint tenderness. No joint swelling. No erythema. NEUROLOGICAL: Normal gait, normal strength, normal tone. SKIN: Warm and dry. OVERALL IMPRESSION: Most likely, this is a pure pulmonary arrest secondary to hypoxemia. At this time, no other cardiac workup or treatment is necessary. TRANSINT:[id number] Voice Confirmation ID: [id number] DOCUMENT ID: [id number] GISSEL DAVIS MD at 1222 CC: [id number] DICTATION DATE: 04/12/17 1158 RIGGING SLINGER: 04/12/17 1226 DIS IN 04/19/17 [facility] [address] [place] [address]
[2017-04-26 11:11] LABS: FUNGUS CULTURE RESULT 1 Candida albicans (())
--- NOTE | 2017-04-27 16:50 | CN ---
PATIENT NAME:MIKALA LABOY MEDICAL RECORD: [id number] : 50 LOCATION:[facility].2306 ADMIT DATE: 04/12/17 ACCOUNT: [id number] CONSULTING PHYSICIAN: JULIAN TREVINO MD REFERRING PHYSICIAN: RENETTA DELEON M.D. DATE OF CONSULTATION: 04/12/2017 REQUESTING PHYSICIAN: Dr. Manuel Caldera. REASON FOR CONSULTATION: Vent management status post cardiopulmonary arrest. HISTORY OF PRESENT ILLNESS: Ms. Laboy is a 66-year-old female, who is now orally intubated and the patient unresponsive. According to the , they were eating hamburger last night and the patient choke on the food and she lost consciousness. He did try the Heimlich maneuver and also started resuscitation on her and then the EMS arrived after 10 minutes. Now, the patient is unresponsive, orally intubated and sedated. REVIEW OF SYSTEMS: The detail is not obtainable. PAST MEDICAL HISTORY: 1. COPD. 2. Asthma. 3. Hypertension. 4. History of cervical cancer. PAST SURGICAL HISTORY: 1. Cataract surgery. 2. Hysterectomy. 3. Hemorrhoidectomy. ALLERGIES: There are no known drug allergies. PRESENT MEDICATIONS: On [employer] was reviewed. PERSONAL AND SOCIAL HISTORY: The patient is an ex-smoker. She is a nondrinker. FAMILY HISTORY: Not known. PHYSICAL EXAMINATION: GENERAL: Now, the patient is orally intubated and sedated. VITAL SIGNS: The blood pressure is 181/91, pulse is 85, respirations 12-20, temperature 98.8 and SpO2 99%. The patient is on assist-controlled mechanical ventilation. HEENT: Conjunctiva is pink. Sclerae is nonicteric. The pupils are 4 mm, were sluggish to react. NECK: Supple. No JVD. CHEST: There are bilateral crackles. No wheezing. HEART: Rhythm regular, normal sound, no murmur. ABDOMEN: Soft. Bowel sounds present. No hepatosplenomegaly. RECTAL: Deferred. EXTREMITIES: No cyanosis, no clubbing. There is no pedal edema. SKIN: Warm, normal turgor. CENTRAL NERVOUS SYSTEM: There is no obvious cranial nerve abnormality. The patient is unresponsive. She constant gaze. CONSULT REPORT [id number] MIKALA LABOY CHEST RADIOGRAPH: CTA of the chest, there was no PE. There are emphysematous changes. There is a soft tissue density in the left main bronchus. OTHER LABORATORY DATA: CBC: WBC is 17.4, hemoglobin is 11.8, hematocrit 38.1 and the platelet count 230. ABG: The pH was 7.17, pCO2 of 71, pO2 was 532 and bicarbonate was 25.9. IMPRESSION: 1. Acute respiratory failure secondary to cardiopulmonary arrest. 2. Cardiopulmonary arrest. 3. Possible foreign body aspiration when the patient was eating. 4. Respiratory acidosis secondary to cardiopulmonary arrest. 5. Leukocytosis. 6. Chronic obstructive pulmonary disease acute exacerbation. 7. Possible anoxic encephalopathy. RECOMMENDATION: 1. Continue the mechanical ventilation, adjust the setting. 2. Albuterol/ipratropium nebulizer, Brovana and budesonide nebulizer. Continue Zosyn empirically. 3. Follow up labs and chest radiograph. Discussed in length with the patient's as well as with Dr. Santiago. We will proceed with fiberoptic bronchoscopy. TRANSINT:[id number] Voice Confirmation ID: [id number] DOCUMENT ID: [id number] JULIAN TREVINO MD at 1650 CC: MANUEL CALDERA MD [id number] DICTATION DATE: 04/12/17 1317 INFORMATION TECHNOLOGY ANALYST: 04/12/17 1504 DIS IN 04/19/17 [facility] [id number] [place] [address]
--- NOTE | 2017-04-27 16:50 | OP ---
PATIENT NAME: MIKALA BETTS MEDICAL RECORD: [id number] :50 LOCATION:[facility] D.2306 ADMISSION DATE:04/12/17 SURGEON: JULIAN TREVINO MD DATE OF OPERATION: 04/12/2017 PROCEDURE: Fiberoptic bronchoscopy INDICATION: Ms. Betts is a 66-year-old female, whose witnessed that she choked on the food and then she had a cardiopulmonary arrest. Fiberoptic bronchoscopy was carried out to inspect the airway for any food material and clean. EKG, blood pressure and SpO2 were monitored throughout the procedure. PROCEDURE IN DETAIL: The patient was already intubated. The fiberoptic bronchoscope was passed through the ET tube. The keith was sharp. The right main bronchus was clear. There were no secretions, no food material, no foreign body in the main bronchus. The left main bronchus was normal. The subsegment to the left upper lobe and left lower lobe within normal range. No food material. No endobronchial lesion was seen. Specimen washing was obtained and sent for routine culture and sensitivity, AFB and fungus. TRANSINT:[id number] Voice Confirmation ID: [id number] DOCUMENT ID: [id number] JULIAN TREVINO MD at 1650 CC: [id number] DICTATION DATE: 04/12/17 1318 PROBATION SUPERVISOR: 04/12/17 1510 DIS IN 04/19/17 [facility] [id number] [place] [id number]
== END 2017-04-19 08:30 | DRG 207 ==
LOC: D.ER 22:18 → D.ICU 04-12 01:28
PROVIDERS: Emergency Medicine; Internal Medicine Pulmonary Disease; ADMIT Family Medicine
PROC: 5A1955Z Respiratory Ventilation, Greater than 96 Consecutive Hours (ICD-10-PCS; principal; 2017-04-11)
PROC: 0B21XEZ Change Endotracheal Airway in Trachea, External Approach (ICD-10-PCS; principal; 2017-04-11)
PROC: 0BB78ZX Excision of Left Main Bronchus, Via Natural or Artificial Opening Endoscopic, Diagnostic (ICD-10-PCS; 2017-04-12)
PROC: 0BB38ZX Excision of Right Main Bronchus, Via Natural or Artificial Opening Endoscopic, Diagnostic (ICD-10-PCS; 2017-04-12)
DX: J96.01 Acute respiratory failure with hypoxia (principal); G93.6 Cerebral edema; G93.1 Anoxic brain damage, not elsewhere classified; J44.1 Chronic obstructive pulmonary disease with (acute) exacerbation; E87.2 Acidosis; I46.8 Cardiac arrest due to other underlying condition; T17.920A Food in respiratory tract, part unspecified causing asphyxiation, initial encounter; X58.XXXA Exposure to other specified factors, initial encounter; I10 Essential (primary) hypertension; E87.6 Hypokalemia; Z78.1 Physical restraint status; Z66 Do not resuscitate; Z87.891 Personal history of nicotine dependence